=== PATIENT | female | born 1980 | race Caucasian/White ===

== ENCOUNTER 2018-12-06 05:20 | Day surgery (SDC) | payer OTHER ==
[2018-12-06] MEDS ORDERED: LACTATED RINGER'S 1,000 ML IV (06:00)
[2018-12-06] MEDS ORDERED: PROPOFOL 100 ML (07:34)
[2018-12-06] MEDS: CEFAZOLIN 2 GM/50 ML (PMX) 50 ML IVPB (08:00)
[2018-12-06] MEDS ORDERED: ROCURONIUM 50 MG INJ (08:01)
[2018-12-06] MEDS ORDERED: LIDOCAINE 2% (SDV) 5 ML INJ (08:01)
[2018-12-06] MEDS ORDERED: CEFAZOLIN 1 GM INJ (08:01)
[2018-12-06] MEDS ORDERED: DEXAMETHASONE 4 MG/ML 5 ML INJ (08:02)
[2018-12-06] MEDS ORDERED: ONDANSETRON 4 MG INJ ×2 (08:07→09:25)
[2018-12-06] MEDS: BUPIVACAINE 0.5%/EPI (SDV) 30 ML INJ (08:25)
[2018-12-06] MEDS ORDERED: GLYCOPYRROLATE 0.4 MG INJ (08:57)
[2018-12-06] MEDS ORDERED: NEOSTIGMINE 3 MG/3 ML SYRINGE (08:57)
[2018-12-06] MEDS ORDERED: FENTAnyl 50 MCG/ML VIAL (09:15)
[2018-12-06] MEDS ORDERED: METOCLOPRAMIDE 10 MG INJ IV (09:30)
[2018-12-06] MEDS ORDERED: EPHEDrine 25 MG/5 ML SYG IV (09:30)
[2018-12-06] MEDS ORDERED: LABETALOL HCL 20MG INJ IV (09:30)
[2018-12-06] MEDS ORDERED: hydrALAzine 20 MG INJ IV (09:30)
[2018-12-06] MEDS ORDERED: DIPHENHYDRAMINE 50 MG INJ IV (09:30)
[2018-12-06] MEDS ORDERED: FENTAnyl 50 MCG/ML VIAL IV ×2 (09:30)
[2018-12-06] MEDS ORDERED: OXYCODONE/ACETAMINOPHEN (5/325) TAB PO (09:30)
[2018-12-06] MEDS ORDERED: MEPERIDINE 25 MG INJ IV (09:30)
[2018-12-06] MEDS ORDERED: ALBUTEROL 0.083% (NEB) 2.5 MG/3 ML AMP HHN (09:30)
[2018-12-06] MEDS ORDERED: KETOROLAC 30 MG INJ (09:34)
[2018-12-06] MEDS: ONDANSETRON 4 MG INJ IV (09:44)
[2018-12-06] MEDS: KETOROLAC 30 MG INJ IV (09:44)
[2018-12-06] MEDS: FENTAnyl 50 MCG/ML VIAL IV (09:44)
[2018-12-06] MEDS: OXYCODONE/ACETAMINOPHEN (5/325) TAB PO (10:11)
== END 2018-12-06 10:30 | disposition home or self-care (01) ==
LOC: SDS 05:20
DX: Z30.2 Encounter for sterilization (principal); I10 Essential (primary) hypertension; E66.9 Obesity, unspecified
CPT/HCPCS: 58661; 88302